=== PATIENT | male | born 1970 | race Caucasian/White ===

== ENCOUNTER 2019-06-02 12:55 | Inpatient (IN) | payer OTHER ==
[~2019-06-02] VITALS: Ht 177.8 cm; Wt 123.4 kg
[~2019-06-02 12:55] MED LIST: FERR325 PO; HYDR1TAB94 PO; PARO20; PARO20 PO; PRAV20 PO; SUCR1 PO
[2019-06-02] MEDS ORDERED: Verapamil HCl240 M1 PO (15:32)
[2019-06-02] MEDS ORDERED: ZESTORETIC 20-1 EACH PO (15:32)
[2019-06-02] MEDS ORDERED: ALBU90OI INH (15:33)
[2019-06-02] MEDS ORDERED: OMEP20ER PO (15:33)
[2019-06-02] MEDS ORDERED: MIRT30 PO (15:33)
[2019-06-02] MEDS ORDERED: ATOR10 PO (15:34)
[2019-06-02] MEDS ORDERED: DULOXETINE HCL60 M1 PO (15:35)
[2019-06-02 15:37] LABS: BASOPHILS ABSOLUTE AUTO 0.02 K/mm3 (0.00-0.23); BASOPHILS PERCENT AUTO 0 % (0-2); EOSINOPHILS ABSOLUTE AUTO 0.01 K/mm3 (0.00-0.68); EOSINOPHILS PERCENT AUTO 0 % (0-6); Hematocrit 49.2 % (37.0-53.0); Hemoglobin 16.2 g/dL (13.5-17.5); IMMATURE GRAN ABSOLUTE AUTO 0.03 K/mm3 (0.00-0.10); IMMATURE GRAN PERCENT AUTO 0 % (0-1); LYMPHOCYTES ABSOLUTE AUTO 1.22 K/mm3 (0.84-5.20); LYMPHOCYTES PERCENT AUTO 12 % (21-46); MONOCYTES ABSOLUTE AUTO 1.39 K/mm3 (0.16-1.47); MONOCYTES PERCENT AUTO 14 % (4-13); Mean Corpuscular HGB 29.5 pg (26.0-34.0); Mean Corpuscular HGB Conc 32.9 g/dL (31.5-36.5); Mean Corpuscular Volume 90 fL (80-100); Mean Platelet Volume 10.8 fL (9.1-12.4); NEUTROPHILS ABSOLUTE AUTO 7.65 K/mm3 (1.96-9.15); NEUTROPHILS PERCENT AUTO 74 % (41-73); Platelet Count 355 K/mm3 (150-400); RDW Coefficient Variation 13.3 % (11.7-14.2); RDW Standard Deviation 43.8 fL (35.1-46.3); White Blood Cell Count 10.32 K/mm3 (4.00-11.30)
[2019-06-02 15:51] LABS: Alanine Aminotransfer (ALT/SGP 40 U/L (12-78); Albumin, Blood 3.8 g/dL (3.4-5.0); Alk Phos 152 U/L (50-136); Anion Gap 6 mmol/L (6-16); Aspartate Aminotrans (AST/SGOT 17 U/L (12-37); Bilirubin, Total 0.6 mg/dL (0.1-1.0); Blood Urea Nitrogen 26 mg/dL (8-24); Bun/Creatinine Ratio 26.6 (12.0-20.0); CO2, Blood 24 mmol/L (21-32); Calcium, Blood 8.8 mg/dL (8.5-10.1); Chloride, Blood 109 mmol/L (98-108); Creatinine, Blood 0.98 mg/dL (0.60-1.20); Globulin, Blood 3.9 g/dL (2.2-4.0); Glomerular Filtration Rate >60 (60-); Glucose, Blood 142 mg/dL (70-99); Potassium, Blood 4.1 mmol/L (3.5-5.5); Sodium, Blood 139 mmol/L (136-145); Total Protein, Blood 7.7 g/dL (6.4-8.2)
[2019-06-02] MEDS ORDERED: Hydroxyzine HCl50 MG PO (16:15)
[2019-06-02] MEDS ORDERED: PRAZ5 PO (16:16)
[2019-06-02] MEDS ORDERED: Imitrex50 MG PO (16:16)
--- NOTE | 2019-06-02 18:07 | NUR ---
SUMMARY PT ADMITTED FROM THE ER FOR SBO, PT IS ALERT AND ORIENTED, ABLE TO TRANSFER SELF FROM THE [facility] INDEPENDENTLY, DENIES ANY PAIN OR NAUSEA AT THIS TIME, NG TUBE PLACED TO LOW INT SUCTION, SMALL AMOUNT OF BROWN DRAINAGE NOTED, SURGICAL CONSULT CALLED, NO ACUTE CHANGES, WILL CONT TO MONITOR
[2019-06-02 21:00] LABS: Adenovirus F 40/41 Not Detected (NOT DETECT); Astrovirus Not Detected (NOT DETECT); Campylobacter Sp Not Detected (NOT DETECT); Cryptosporidium Not Detected (NOT DETECT); Cyclospora Cayetanensis Not Detected (NOT DETECT); E. Coli O157 Not Detected (NOT DETECT); Entamoeba Histolytica Not Detected (NOT DETECT); Enteroaggregative E. coli-EAEC Not Detected (NOT DETECT); Enteropathogenic E. coli-EPEC Not Detected (NOT DETECT); Enterotoxigenic E. coli-ETEC Not Detected (NOT DETECT); Giardia Lamblia Not Detected (NOT DETECT); Norovirus GI/GII Not Detected (NOT DETECT); Plesiomonas Shigelloides Not Detected (NOT DETECT); Rotavirus A Not Detected (NOT DETECT); Salmonella Sp Not Detected (NOT DETECT); Sapovirus Not Detected (NOT DETECT); Shiga Toxin-prod E. coli-STEC Not Detected (NOT DETECT); Shigella/Enteroin E. coli-EIEC Not Detected (NOT DETECT); Vibrio Cholerae Not Detected (NOT DETECT); Vibrio Sp Not Detected (NOT DETECT); Yersinia Enterocolitica Not Detected (NOT DETECT)
[2019-06-03 05:05] LABS: Anion Gap 4 mmol/L (6-16); Blood Urea Nitrogen 20 mg/dL (8-24); CO2, Blood 25 mmol/L (21-32); Calcium, Blood 8.2 mg/dL (8.5-10.1); Chloride, Blood 111 mmol/L (98-108); Creatinine, Blood 0.87 mg/dL (0.60-1.20); Glomerular Filtration Rate >60 (60-); Glucose, Blood 124 mg/dL (70-99); Potassium, Blood 3.8 mmol/L (3.5-5.5); Sodium, Blood 140 mmol/L (136-145)
--- NOTE | 2019-06-03 06:44 | NUR ---
RIDING TEACHER SUMMARY Patient slept almost all night without difficulty. 1 more liquid stool before HS. GI panel came back negative on all tests. voiding clear yellow urine mostly into toilet. NG to low suction yielded 150 ml of brown purulent liquid. Patient without pain all night. bowel tones very hypoactive but present in all quads. Zofran given once yest afternoon, and once early AM.
--- NOTE | 2019-06-03 17:11 | NUR ---
SUMMARY PT SITTING UP IN BED WATCHING TV, DR GOMEZ HAS BEEN IN TO SEE THE PT AND THE NG TUBE IS CURRENTLY CLAMPED, PT HAS DENIED ANY PAIN OR NAUSEA T/O THE DAY, PT DID GET UP AND WALK IN THE HALLS INDEPENDENTLY, NG TUBE HAS BEEN RE-TAPED AND IS SECURE, IF NO NAUSEA OR VOMITING OVERNIGHT, PT MAY HAVE THE NG REMOVED, PER DR GOMEZ, VSS, NO ACUTE CHANGES, WILL CONT TO MONITOR
--- NOTE | 2019-06-04 06:19 | NUR ---
SHIFT SUMMARY PATIENT ALERT AND ORIENTED. ABLE TO GET UP AND WALK AROUND INDEPENDENTLY. PATIENT HAD NO COMPLAINTS OF PAIN OR NAUSEA DUE TO SMALL BOWEL OBSTRUCTION. IV PATENT AND INFUSING WITH LACTATED RINGERS AT 125 ML/HR. BED IN LOWEST POSITION WITH WHEELS LOCKED. CALL LIGHT AND BELONGINGS WITHIN REACH. REPORT GIVEN TO ONCOMING RN.
--- NOTE | 2019-06-04 17:47 | NUR ---
PT IS A/OX3, PLEASANT AND COOPERATIVE, THE PT APPEARS TO BE BREATHING EASILY ON RA AT THIS TIME, TODAY THE PT WAS STARTED ON CLEAR LIQUID DIET AND HAS TOLERATED IT WELL SO FAR THIS SHIFT, THE PTS NG TUBE WAS REMOVED PER DR. GOMEZ ORDERS, PT IS HAVEING A REGULAR TEXTURED MEAL AT THIS TIME, PT DENIED ANY PAIN OR N/V SO THIS SHIFT, PT IS UP IND IN HIS ROOM, CALL LIGHT IN REACH,
--- NOTE | 2019-06-04 18:22 | NUR ---
DINNER PT WAS ABLE TO EAT A REGULAR DINNER, PT REPORTED NO PAIN OR NAUSEA
[2019-06-05 05:09] LABS: BASOPHILS ABSOLUTE AUTO 0.01 K/mm3 (0.00-0.23); BASOPHILS PERCENT AUTO 0 % (0-2); EOSINOPHILS ABSOLUTE AUTO 0.24 K/mm3 (0.00-0.68); EOSINOPHILS PERCENT AUTO 3 % (0-6); Hematocrit 41.5 % (37.0-53.0); Hemoglobin 13.3 g/dL (13.5-17.5); IMMATURE GRAN ABSOLUTE AUTO 0.03 K/mm3 (0.00-0.10); IMMATURE GRAN PERCENT AUTO 0 % (0-1); LYMPHOCYTES ABSOLUTE AUTO 2.15 K/mm3 (0.84-5.20); LYMPHOCYTES PERCENT AUTO 26 % (21-46); MONOCYTES ABSOLUTE AUTO 0.83 K/mm3 (0.16-1.47); MONOCYTES PERCENT AUTO 10 % (4-13); Mean Corpuscular HGB 29.4 pg (26.0-34.0); Mean Corpuscular Volume 92 fL (80-100); Mean Platelet Volume 10.6 fL (9.1-12.4); NEUTROPHILS ABSOLUTE AUTO 5.03 K/mm3 (1.96-9.15); NEUTROPHILS PERCENT AUTO 61 % (41-73); Platelet Count 250 K/mm3 (150-400); RDW Coefficient Variation 13.1 % (11.7-14.2); RDW Standard Deviation 44.6 fL (35.1-46.3); Red Blood Cell Count 4.52 M/mm3 (4.30-5.90); White Blood Cell Count 8.29 K/mm3 (4.00-11.30)
[2019-06-05 05:27] LABS: Anion Gap 5 mmol/L (6-16); Blood Urea Nitrogen 12 mg/dL (8-24); Bun/Creatinine Ratio 14.9 (12.0-20.0); CO2, Blood 27 mmol/L (21-32); Calcium, Blood 8.6 mg/dL (8.5-10.1); Chloride, Blood 110 mmol/L (98-108); Creatinine, Blood 0.81 mg/dL (0.60-1.20); Glomerular Filtration Rate >60 (60-); Glucose, Blood 94 mg/dL (70-99); Magnesium, Blood 2.1 mg/dL (1.6-2.4); Potassium, Blood 3.6 mmol/L (3.5-5.5); Sodium, Blood 142 mmol/L (136-145)
--- NOTE | 2019-06-05 05:37 | NUR ---
SHIFT SUMMARY PATIENT ALERT AND ORIENTED. HAS HAD NO COMPLAINTS OF PAIN OR NAUSEA OVERNIGHT. DID NOT GET MUCH SLEEP BUT WAS PLEASANT TO WORK WITH. IV PATENT AND FLUSHED. BED IN LOWEST POSITION WITH WHEELS LOCKED. CALL LIGHT AND BELONGINGS WITHIN REACH. REPORT GIVEN TO ONCOMING RN.
[2019-06-05] MEDS ORDERED: ONDA4ODT MM (09:58)
[2019-06-05] MEDS ORDERED: ACET325 PO (09:58)
--- NOTE | 2019-06-05 16:40 | NUR ---
SHIFT SUMMARY PT WOKE FOR SHIFT REPORT, BUT DID NOT LIKE BEING BOTHERED FOR REPORT. ADMITTED YESTERDAY FOR PYLEONEPHRITIS. IVF'S INFUSING. HAS C/O PAIN AND NAUSEA A COUPLE OF TIMES; L FLANK PAIN. MEDICATED PER EMAR. DR ODELL OFFERED PT ADDITIONAL PAIN MEDICATION, BUT PT DID NOT WANT IT. ENCOURAGED PT TO DRINK FLUIDS SHE HAD NOT BEEN TAKING IN PO. PT C/O RT TX'S ORDERED. DISCUSSED WITH DR ODELL. RT TX'S ADJUSTED TO PT'S REQUESTS/NEEDS. PT UP WITH ASSIST TO BTHRM TO VOID. PT REPORTED NO BM SINCE SATURDAY. DR ODELL NOTIFIED. PT RESTING QUIETLY AT THIS TIME. DENIED FURTHER NEEDS. CALL LT IN REACH. VISITORS IN EARLIER, NOW GONE.
== END 2019-06-05 10:51 | disposition home or self-care (01) | DRG 389 ==
LOC: ER 12:55 → MEDS 12:56
PROVIDERS: Emergency Medicine; Family Medicine; ADMIT Internal Medicine
DX: K56.609 Unspecified intestinal obstruction, unspecified as to partial versus complete obstruction (principal); R65.10 Systemic inflammatory response syndrome (SIRS) of non-infectious origin without acute organ dysfunction; I10 Essential (primary) hypertension; E78.5 Hyperlipidemia, unspecified; F32.9 Major depressive disorder, single episode, unspecified; J45.909 Unspecified asthma, uncomplicated; R19.7 Diarrhea, unspecified; Z87.820 Personal history of traumatic brain injury
CPT/HCPCS: 0097U; 36415; 80048; 80053; 83735; 85025; 93005; 93010; 96361; 96372; 96374; 96375; 96376; 99285-25; A9270; G0378; J1650; J2405; J7120

== ENCOUNTER 2020-02-09 14:33 | Emergency (ER) | payer OTHER ==
[~2020-02-09] VITALS: Ht 177.8 cm; Wt 120.2 kg
[~2020-02-09 14:33] MED LIST changes: +ACET325 PO; +ALBU90OI INH; +ATOR10 PO; +DULOXETINE HCL60 M1 PO; +Hydroxyzine HCl50 MG PO; +Imitrex50 MG PO; +MIRT30 PO; +OMEP20ER PO; +ONDA4ODT MM; +PRAZ5 PO; +Verapamil HCl240 M1 PO; +ZESTORETIC 20-1 EACH PO
[2020-02-09] MEDS ORDERED: Inderal40 MG (14:51)
[2020-02-09 15:50] LABS: BASOPHILS ABSOLUTE AUTO 0.03 K/mm3 (0.00-0.23); BASOPHILS PERCENT AUTO 0 % (0-2); EOSINOPHILS ABSOLUTE AUTO 0.07 K/mm3 (0.00-0.68); EOSINOPHILS PERCENT AUTO 1 % (0-6); IMMATURE GRAN ABSOLUTE AUTO 0.02 K/mm3 (0.00-0.10); IMMATURE GRAN PERCENT AUTO 0 % (0-1); LYMPHOCYTES ABSOLUTE AUTO 1.31 K/mm3 (0.84-5.20); LYMPHOCYTES PERCENT AUTO 17 % (21-46); MONOCYTES ABSOLUTE AUTO 0.85 K/mm3 (0.16-1.47); MONOCYTES PERCENT AUTO 11 % (4-13); Mean Corpuscular HGB 28.7 pg (26.0-34.0); Mean Corpuscular Volume 90 fL (80-100); Mean Platelet Volume 10.8 fL (9.1-12.4); NEUTROPHILS ABSOLUTE AUTO 5.66 K/mm3 (1.96-9.15); NEUTROPHILS PERCENT AUTO 71 % (41-73); Platelet Count 312 K/mm3 (150-400); RDW Coefficient Variation 13.8 % (11.7-14.2); RDW Standard Deviation 45.6 fL (35.1-46.3); Red Blood Cell Count 5.57 M/mm3 (4.30-5.90); White Blood Cell Count 7.94 K/mm3 (4.00-11.30)
[2020-02-09 16:04] LABS: Alanine Aminotransfer (ALT/SGP 609 U/L (12-78); Albumin, Blood 3.7 g/dL (3.4-5.0); Alk Phos 208 U/L (50-136); Anion Gap 5 mmol/L (6-16); Aspartate Aminotrans (AST/SGOT 489 U/L (12-37); Bilirubin, Total 2.8 mg/dL (0.1-1.0); Blood Urea Nitrogen 10 mg/dL (8-24); Bun/Creatinine Ratio 9.3 (12.0-20.0); CO2, Blood 28 mmol/L (21-32); Calcium, Blood 9.7 mg/dL (8.5-10.1); Chloride, Blood 108 mmol/L (98-108); Creatinine, Blood 1.07 mg/dL (0.60-1.20); Globulin, Blood 3.7 g/dL (2.2-4.0); Glomerular Filtration Rate >60 (60-); Glucose, Blood 104 mg/dL (70-99); Sodium, Blood 141 mmol/L (136-145); Total Protein, Blood 7.4 g/dL (6.4-8.2)
[2020-02-09 16:26] LABS: Source, Urine Clean Catch
[2020-02-09 16:35] LABS: Appearance, Urine Clear (Clear); Bilirubin, Urine Neg (Neg); Blood, Urine Neg (Neg); Color, Urine Yellow (P-Yellow); Glucose Qualitative, Urine Neg (Neg); Ketones, Urine Neg (Neg); Leukocyte Esterase, Urine Neg (Neg); Nitrite, Urine Neg (Neg); Protein, Urine Neg (Neg); Urobilinogen, Urine 1+ (Normal); pH, Urine 6.5 (5.0-8.0)
== END 2020-02-09 21:08 | disposition short-term general hospital (02) ==
LOC: ER 14:33
PROVIDERS: Emergency Medicine
DX: K85.10 Biliary acute pancreatitis without necrosis or infection (principal); K80.10 Calculus of gallbladder with chronic cholecystitis without obstruction; I10 Essential (primary) hypertension; E78.5 Hyperlipidemia, unspecified; F32.9 Major depressive disorder, single episode, unspecified; F41.9 Anxiety disorder, unspecified; Z20.828 Contact with and (suspected) exposure to other viral communicable diseases; Z87.820 Personal history of traumatic brain injury; Z88.8 Allergy status to other drugs, medicaments and biological substances; Z79.899 Other long term (current) drug therapy
CPT/HCPCS: 36415; 74177; 76705; 80053; 81003; 83690; 85025; 96361; 96365-59; 96375; 99284-25; G0480; J0694; J1170; J2405; J7030; J7120; Q9967; U0002